=== PATIENT | male | born 1985 | race Caucasian/White ===

== ENCOUNTER → 2016-04-19 | Outpatient (CLI) | payer BC ==
[~2016-04-19] MED LIST: ZESTRIL5 MG PO
--- NOTE | ~2016-04-19 | CT134 ---
[facility] A Service of [facility] RADIOLOGY TEXT RESULTS PATIENT: ABEL LOGAN LOCATION: [facility] : 85 UNIT #: [id number] AGE: [address]: Epifanio Voss MD SEX: M ORDER DR: [id number] [facility]. [place], [place] [address] [id number] O MR#: [id number] Acc #: [id number] NAME: ABEL LOGAN : 1985 SEX: M STUDY DATE/TIME: 04/19/2016 8:34 UNIT: [facility] ROOM: STUDY DESCRIPTION: CT Guide Attending Physician: Epifanio Voss M.D. Referring Physician: Epifanio Voss M.D. Ordering Physician: Epifanio Voss M.D. Primary Care Physician: Kei Puentes M.D. MEDICAL IMAGING REPORT This report is preliminary unless electronic signature is present EXAM CT guided renal biopsy INDICATION Mr. Logan is a 30-year-old man with proteinuria. He also apparently has a history of renal stones on the left. He has been referred for left renal biopsy. TECHNIQUE This CT exam was performed with one or more of the following radiation dose reduction techniques: automatic exposure control, adjustment of mA and/or kV according to patient size, and iterative reconstruction. PROCEDURE The risks, benefits and alternatives to the procedure were explained to the patient, and signed, informed consent was obtained. The patient was placed prone on the CT scanner gantry. A preliminary CT scan was performed through the region of interest. An appropriate site overlying the patient's left kidney was selected. The overlying skin was marked. Patient was prepped and draped in the usual sterile fashion. Time-out was performed as per protocol. The skin and subcutaneous tissues were anesthetized with buffered lidocaine and a 17-gauge coaxial needle was advanced into the periphery of the left kidney. At this point I attempted to obtain a core sample. This appeared to be inadequate, and really just containing some clot, and as a consequence, a repeat CT scan was performed which showed a small perinephric hematoma. The tip of the needle appeared to be just outside of the kidney. I repositioned the needle with the tip within the kidney. Again repeat CT scan appeared to confirm appropriate position of the needle. I again tried to obtain an additional core sample but again this did not yield significant material. I subsequently switched biopsy guns and advanced the new biopsy gun through the coaxial needle. At this point I did obtain a core sample. A second core sample was then obtained. I originally planned to obtain yet another core sample [facility] A Service of [facility] RADIOLOGY TEXT RESULTS PATIENT: ABEL LOGAN LOCATION: [facility] : 85 UNIT #: [id number] AGE: [address]: Epifanio Voss MD SEX: M ORDER DR: however the coaxial needle appeared to be clotted and I was unable to advance the biopsy gun through the coaxial needle. At this point the procedure was terminated as the patient already had a small perinephric hematoma and I did not want to place an additional coaxial needle within the kidney. Presence of the perinephric hematoma also made assessment of needle location difficult. Patient tolerated the procedure well and again it was complicated by a small asymptomatic perinephric hematoma. The possibility that this is an inadequate biopsy as well as the presence of the perinephric hematoma were discussed at length with both the patient and his following termination of the procedure. IMPRESSION Multiple attempts were made to obtain adequate core samples from this patient's left kidney. 2 samples were attempted with the original biopsy gun which was felt to be defective. I was able to obtain two more specimens using a second 18-gauge biopsy gun but following this was no longer able to advance the biopsy gun through the coaxial needle as it appeared to be clotted. I opted not to place another coaxial needle at this time as the patient already had a small perinephric hematoma and I did not wish to place him at further risk for bleeding not to mention the hematoma made it difficult to assess the exact tip of the needle. The possibility that this is an inadequate biopsy and may require repeat biopsy was discussed at length with both the patient and his following termination of the procedure. The procedure was complicated by a small perinephric hematoma. Dictated by... Junie Santos M.D. THIS IS AN ELECTRONICALLY VERIFIED REPORT Junie Santos M.D. at 04/20/2016 5:25 PM Josias TD: 04/20/2016 11:40 JOB #: [id number] MEDICAL IMAGING REPORT COPY
[2016-04-19 06:28] LABS: HEMATOCRIT 47.3 % (38.0-50.0); HEMOGLOBIN 16.2 gm/dL (13.0-16.0); MEAN CELL VOLUME 91.9 FL (83-96); MEAN CORPUSCULAR HEMOGLOBIN 31.5 PG (28-34); MEAN CORPUSCULAR HGB CONC 34.3 g/dL (30-36); MEAN PLATELET VOLUME 9.3 FL (6.5-11.5); RED BLOOD COUNT 5.15 X10e (3.90-5.60); RED CELL DISTRIBUTION WIDTH 12.4 % (11.0-15.5); WHITE BLOOD COUNT 9.2 X10e3 (4.0-10.5)
[2016-04-19 06:43] LABS: PROTHROMBIN TIME (PATIENT) 10.5 SECONDS (9.6-11.5)
== END | disposition home or self-care (01) ==
LOC: CIVR 05:58
PROVIDERS: Internal Medicine Nephrology
DX: R80.8 Other proteinuria (principal); S37.012A Minor contusion of left kidney, initial encounter
CPT/HCPCS: 36415; 77012; 85027; 85610; 85730; 88300; J2250; J3010